=== PATIENT | male | born 1970 | race Caucasian/White ===

== ENCOUNTER 2021-10-10 03:35 | Inpatient (IN) | payer MEDICAID, SELFPAY ==
[~2021-10-10] VITALS: Ht 182.9 cm; Wt 117.9 kg
[2021-10-10 03:40] VITALS: BP_SYST 164
--- NOTE | 2021-10-10 03:50 | NUR ---
ER doctor, at bedside examining patient.
[2021-10-10] MEDS ORDERED: PIPERACILLIN/TAZO 3.38 GM in D5W 50 ML IV ONE (04:00)
[2021-10-10] MEDS ORDERED: ACETAMINOPHEN 500 MG TABLET PO ONE (04:00)
[2021-10-10] MEDS ORDERED: NS 1000 ML IV.SOLN IV ONE (04:00)
[2021-10-10] MEDS ORDERED: VANCOMYCIN HCL 1,000 MG in D5W 250 ML IV ONE (04:00)
[2021-10-10] MEDS ORDERED: cefTRIAXone 1 GM in D5W 50 ML IV ONE (04:15)
[2021-10-10] MEDS ORDERED: HYDROmorphone 1 MG/ML INJ. CARTRIDGE IM ONE (04:15)
--- NOTE | 2021-10-10 04:30 | NUR ---
PATIENT A/OX4. PATIENT IS LYING IN BED, RESTING CALMLY IN BEDSIDE, NO C/O PAIN OR S/S OF DISTRESS. PATIENT CHEST RISE AND FALL SYMMETRICAL. PATIENT RESTING COMFORTABLY, BED IN LOW AND LOCKED POSITION, 3 BED RAILS UP. Addendum: 10/10/21 at 0728 by [email or web address] PATIENT A/OX4. PATIENT IS LYING IN BED, RESTING CALMLY IN BED, NO C/O PAIN OR S/S OF DISTRESS. PATIENT CHEST RISE AND FALL SYMMETRICAL. PATIENT RESTING COMFORTABLY, BED IN LOW AND LOCKED POSITION, 3 BED RAILS UP.
[2021-10-10] MEDS ORDERED: cefTRIAXone 1 GM VIAL ONE (04:36)
[2021-10-10] MEDS ORDERED: PIPERACILLIN/TAZOBACTAM 3.375 GM/VIAL (ZOSYN) IV ONE (04:36)
[2021-10-10] MEDS ORDERED: VANCOMYCIN HCL 1000 MG/VIAL IV ONE (04:38)
[2021-10-10] MEDS ORDERED: ACETAMINOPHEN 500 MG TABLET ONE (04:44)
[2021-10-10 04:45] LABS: BASOPHILS % (AUTO) 0.2 % (0.0-2.0); HEMATOCRIT 26.4 % (36-54); HEMOGLOBIN 8.3 g/dL (14.0-18.0); LYMPHOCYTES # (AUTO) 0.8 K/uL (1.0-5.5); LYMPHOCYTES % (AUTO) 5.4 % (20.5-51.5); MEAN CORPUSCULAR HEMOGLOBIN 22 pg (27-31); MEAN CORPUSCULAR HGB CONC 31 % (32-36); MEAN CORPUSCULAR VOLUME 71 fL (79.0-98.0); MONOCYTES # (AUTO) 1.3 K/uL (0.0-1.0); MONOCYTES % (AUTO) 9.1 % (1.7-9.3); NEUTROPHILS # (AUTO) 12.2 K/uL (1.8-7.7); NEUTROPHILS % (AUTO) 85.3 % (40.0-70.0); PLATELET COUNT (AUTO) 224 K/uL (130-430); RED BLOOD CELL COUNT(AUTO) 3.73 MIL/uL (4.2-6.2); RED CELL DISTRIBUTION WIDTH 15.4 % (9.0-15.0); WHITE BLOOD COUNT (AUTO) 14.3 K/uL (4.8-10.8)
[2021-10-10 04:57] LABS: BILIRUBIN,URINE NEGATIVE (NEGATIVE); BLOOD, URINE NEGATIVE (NEGATIVE); CLARITY/URINE CLEAR (CLEAR); COLOR,URINE YELLOW (YELLOW); GLUCOSE,URINE NEGATIVE (NEGATIVE); KETONES,URINE NEGATIVE (NEGATIVE); LEUKOCYTE ESTERASE ,URINE NEGATIVE (NEGATIVE); NITRITE, URINE NEGATIVE (NEGATIVE); PH,URINE 7.5 (5.0-8.0); PROTEIN URINE 1+ (NEGATIVE)
[2021-10-10 06:25] LABS: PROTHROMBIN TIME 9.8 SECS (9.5-12.5)
--- NOTE | 2021-10-10 06:31 | NUR ---
Karly Morales called and stated she "is his , "referring to patient. Patient had previously stated, "My recently from cancer." Karly Morales requested information on patient, but she was informed that she can not be informed that patient is or is not in the hospital. due to not being on patient's emergency contact or [facility] list. Karly Morales stated that she is going to come to hospital "to see if he is in the hospital," referring to patient. Patient stated, "Karly Morales is my girlfriend and I want to add her to my emergency contact." Monotype Operator Vallery stated that she "will add Karly to [facility] information per patient request."
[2021-10-10] MEDS ORDERED: NALOXONE HCL 0.4 MG/ML AMP (NARCAN) IVP PRN ×3 (07:00→07:30)
[2021-10-10] MEDS ORDERED: MORPHINE 2 MG/ML INJ. SYRINGE IVP PRN ×2 (07:00→07:30)
--- NOTE | 2021-10-10 07:29 | NUR ---
REPORT GIVEN TO AM SHIFT NURSE, BARON RN. BARON RN VERBALIZED UNDERSTANDING OF REPORT, NO FURTHER QUESTIONS. PATIENT A/OX4. PATIENT IS LYING IN BED, RESTING CALMLY IN BED, NO C/O PAIN OR S/S OF DISTRESS. PATIENT CHEST RISE AND FALL SYMMETRICAL. PATIENT RESTING COMFORTABLY, BED IN LOW AND LOCKED POSITION, 3 BED RAILS UP. 18G IV IN LEFT ARM FLUSHED AND PAIN MEDICATION GIVEN. VANCOMYCIN INFUSING VIA 18G RIGHT ARM.
[2021-10-10] MEDS ORDERED: DOCUSATE SODIUM 100 MG CAPSULE PO PRN (07:30)
[2021-10-10] MEDS ORDERED: DEXTROSE 50% JECT 50 ML DISP.SYRIN IVP PRN (07:30)
[2021-10-10] MEDS ORDERED: POTASSIUM CHLORIDE 20 MEQ TAB.PRT.SR PO PRN (07:30)
[2021-10-10] MEDS ORDERED: MUPIROCIN 2% TOPICAL OINTMENT 22 GM NS PRN (07:30)
[2021-10-10] MEDS ORDERED: MAGNESIUM SULFATE 50 ML IV PRN (07:30)
[2021-10-10] MEDS ORDERED: ZOLPIDEM TARTRATE 5 MG TABLET PO PRN (07:30)
[2021-10-10] MEDS ORDERED: LORazepam 2 MG/ML VIAL IVP PRN (07:30)
[2021-10-10 07:31] LABS: CALCIUM 7.3 mg/dL (8.4-11.0); CREATININE 0.99 mg/dL (0.55-1.30); POTASSIUM 3.1 mmol/L (3.5-5.1); TOTAL BILIRUBIN 0.7 mg/dL (0.0-1.0)
[2021-10-10 07:32] LABS: ALBUMIN 2.6 g/dL (3.4-4.8); URIC ACID 3.8 mg/dL (2.4-7.0)
[2021-10-10 07:34] LABS: C-REACTIVE PROTEIN QUANT 37.8 mg/dL (0-0.5)
[2021-10-10] MEDS ORDERED: POTASSIUM CHLORIDE 20 MEQ TAB.PRT.SR PO ONE (07:45)
[2021-10-10] MEDS ORDERED: ACETAMINOPHEN 325 MG TABLET PO PRN (07:45)
[2021-10-10] MEDS ORDERED: ASPIRIN 81 MG TAB.CHEW PO ONE (07:45)
[2021-10-10 08:10] LABS: ERYTHROCYTE SEDIMENTATION RATE 42 MM/HR (0-15)
--- NOTE | 2021-10-10 08:56 | NUR ---
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 CHRONIC HAND PAIN, REQUESTED ICE PACK AND GIVEN FOR COMFORT. BOTH IV SL-TO RT AND LT HANDS ARE PATENT. PT UPDATED ON PLAN OF CARE, WAIITNG FOR TELE BED.
[2021-10-10] MEDS ORDERED: LISINOPRIL 10 MG TABLET (PRINIVIL) PO ONE (09:00)
[2021-10-10] MEDS ORDERED: HEPARIN SODIUM,PORCINE 5,000 UNITS/ML VIAL SUBCUT ONE (09:00)
[2021-10-10 09:43] LABS: BARBITURATE, URINE NEGATIVE (NEG <=200); BENZODIAZEPINE, URINE NEGATIVE (NEG <=150); CANNABINOID, URINE NEGATIVE (NEG <=50); COCAINE, URINE NEGATIVE (NEG <=150); METHAMPHETAMINES SCREEN,URINE POSITIVE (NEG <=500); OPIATE, URINE POSITIVE (NEG <=100); PHENCYCLIDINE SCREEN,URINE NEGATIVE (NEG <=25); UR TRICYCLIC ANTIDEPRESSANTS NEGATIVE (NEG <=300); URINE AMPHETAMINE POSITIVE (NEG <=500); URINE METHADONE NEGATIVE (NEG <=200); URINE OXYCODONE SCREEN NEGATIVE (NEG <=100); URINE PROPOXYPHENE SCREEN NEGATIVE (NEG <=300)
[2021-10-10 10:04] LABS: TOTAL IRON BIND. CAPACITY 270 ug/dL (250-450)
--- NOTE | 2021-10-10 10:09 | NUR ---
ECHOCARDIOGRA IN PROCESS
--- NOTE | 2021-10-10 10:15 | NUR ---
DR NAVARRO IN ROOM FOR EXAM
[2021-10-10] MEDS ORDERED: COLCHICINE 0.6 MG TABLET PO ONE (10:30)
[2021-10-10] MEDS: NACL 0.9% 1,000 ML IV SCH (10:30)
--- NOTE | 2021-10-10 10:35 | NUR ---
PT MOANING AND C/O SEVERE PAIN TO RT LEG/KNEE AREA, STATES "IT'S MY GOUT" MEDICATED ORDERED, WILL CONT TO MONITOR. SAFETY PRRECAUTIONS IN PLACE, ON RA @99%.
[2021-10-10] MEDS: ONDANSETRON HCL 4 MG/2 ML VIAL IVP PRN ×2 (10:36→16:05)
[2021-10-10] MEDS: MORPHINE 2 MG/ML INJ. SYRINGE IVP PRN ×2 (10:36→16:05)
--- NOTE | 2021-10-10 12:35 | NUR ---
I CALLED PHARMACY SINCE ADMITTED ORDERED MEDS RE NOT IN ER PYXIS, THEY STATE THEY WILL PROCESS AND BRING.
[2021-10-10] MEDS: VANCOMYCIN HCL 1,250 MG in NS 250 ML IV SCH ×2 (13:59→21:44)
--- NOTE | 2021-10-10 15:33 | NUR ---
PT MOANING IN PAIN UPON RE-ASSESSMENT, PAIN 10/10 TO AISHWARYA HAND AND AISHWARYA FEET "BURNING SENSATION" WILL MEDICATE ORDERED. IV FLUIDS INFUSING WELL. VSS. WAITING FOR TELE BED.
--- NOTE | 2021-10-10 17:52 | NUR ---
PT WITH EYES CLOSED, IN NAD. RESP EVEN AND UNLABORED, ON 02-2L VIA NC @98%. IV FLUIDS INFUSING WELL. EASILY AROUSABLE, MOANS IN PAIN THEN FALLS ASLEEP IMMEDIATELY. SAFETY PRECUATIONSIN PLACE. HOSPITAL BED ORDERED.
--- NOTE | 2021-10-10 18:04 | NUR ---
DR NAVARRO IN ROOM FOR EXAM. UPDATED ON STAUS, LABS AND VITALS.
--- NOTE | 2021-10-10 18:32 | NUR ---
PT TRANSFERRED TO HOSPITAL BED WITH ASSISTANCE, TOLERATED FAIRLY. DINNER TRAY GIVEN.
[2021-10-10] MEDS: ACETAMINOPHEN 325 MG TABLET PO PRN (18:34)
--- NOTE | 2021-10-10 18:43 | NUR ---
[facility] CALLED FOR AN UPDATE. PT INFORMED.
--- NOTE | 2021-10-10 19:17 | NUR ---
RECIEVED REPORT FROM EMERALD DRAPER. PT IS RESTING WITH EYES CLOSED EASILY AROUSABLE TO VERBAL STIMULI. PENDING ADMISSION TO THE TELEMETRY UNIT. WILL MONITOR NEEDED
--- NOTE | 2021-10-10 20:53 | NUR ---
ADMISSION NOTE Received patient from ER via christo, received report from Dinorah CORBIN. Patient admitted with diagnosis of cellulitis. Patient oriented to hospital routine, call light, toileting and safety-patient verbalized understanding.
[2021-10-10 20:57] VITALS: BP_SYST 134
--- NOTE | 2021-10-10 21:08 | NUR ---
Pt admitted to room 108B. Bed side report given to receiving RN. Questions/concerns answered.
[2021-10-10] MEDS: COLCHICINE 0.6 MG TABLET PO SCH (21:45)
[2021-10-10] MEDS: methylPREDNISolone SOD SUCC/PF 62.5 MG/ML VIAL IVP SCH (21:45)
[2021-10-10] MEDS: HEPARIN SODIUM,PORCINE 5,000 UNITS/ML VIAL SUBCUT SCH (21:49)
[2021-10-10] MEDS: INSULIN LISPRO SLIDING SCALE 100 UNITS/ML VIAL (humaLOG) SUBCUT PRN (22:16)
[2021-10-11] VITALS: BP_SYST 132
[2021-10-11] MEDS: ACETAMINOPHEN 325 MG TABLET PO PRN (01:18)
[2021-10-11] MEDS: NACL 0.9% 1,000 ML IV SCH ×3 (01:27→22:04)
[2021-10-11 02:15] VITALS: BP_SYST 134
[2021-10-11] MEDS: methylPREDNISolone SOD SUCC/PF 62.5 MG/ML VIAL IVP SCH ×3 (05:57→21:39)
[2021-10-11] MEDS: VANCOMYCIN HCL 1,250 MG in NS 250 ML IV SCH ×3 (05:58→21:39)
[2021-10-11] MEDS: INSULIN LISPRO SLIDING SCALE 100 UNITS/ML VIAL (humaLOG) SUBCUT PRN ×4 (06:16→20:37)
[2021-10-11 07:06] LABS: FOLATE (FOLIC ACID) 6.6 ng/mL (>3.0)
[2021-10-11 07:17] LABS: BASOPHILS % (AUTO) 0.1 % (0.0-2.0); HEMATOCRIT 26.1 % (36-54); HEMOGLOBIN 8.2 g/dL (14.0-18.0); LYMPHOCYTES # (AUTO) 0.6 K/uL (1.0-5.5); MEAN CORPUSCULAR HEMOGLOBIN 23 pg (27-31); MEAN CORPUSCULAR HGB CONC 32 % (32-36); MEAN CORPUSCULAR VOLUME 71 fL (79.0-98.0); MONOCYTES # (AUTO) 0.6 K/uL (0.0-1.0); MONOCYTES % (AUTO) 3.8 % (1.7-9.3); NEUTROPHILS # (AUTO) 14.8 K/uL (1.8-7.7); NEUTROPHILS % (AUTO) 92.1 % (40.0-70.0); PLATELET COUNT (AUTO) 221 K/uL (130-430); RED BLOOD CELL COUNT(AUTO) 3.66 MIL/uL (4.2-6.2); RED CELL DISTRIBUTION WIDTH 15.5 % (9.0-15.0)
--- NOTE | 2021-10-11 07:30 | NUR ---
PT IS AWAKE ALERT AND ORIENTED X4, NO ACUTE DISTRESS, VSS, NSR TO ST ON TELE, USUALLY INDEPENDENT AT HOME BUT DUE TO GENERALIZED EDEMA FROM GOUT, PT HAS NOT BEEN ABLE TO GET OOB. PT STATES: "IT HURTS WHEN I MOVE AROUND." ABLE TO MOVE SIDE TO SIDE TO HELP PREVENT SKIN BREAKDOWN. IV FLUIDS IN PROGRESS. ACCU CHECKS AC/HS WITH INSULIN SLIDING SCALE. WILL ASSUME CARE AND CONTINUE TO MONITOR PT.
[2021-10-11 08:00] VITALS: BP_SYST 119
[2021-10-11 08:23] LABS: CALCIUM 7.6 mg/dL (8.4-11.0); CREATININE 1.08 mg/dL (0.55-1.30)
[2021-10-11 08:28] LABS: TOTAL BILIRUBIN 0.7 mg/dL (0.0-1.0)
[2021-10-11] MEDS: COLCHICINE 0.6 MG TABLET PO SCH ×2 (09:00→15:37)
[2021-10-11] MEDS: LISINOPRIL 10 MG TABLET (PRINIVIL) PO SCH (09:01)
[2021-10-11] MEDS: HEPARIN SODIUM,PORCINE 5,000 UNITS/ML VIAL SUBCUT SCH ×2 (09:05→20:42)
[2021-10-11] MEDS ORDERED: FUROSEMIDE 40 MG/4 ML VIAL IVP ONE (09:30)
[2021-10-11 09:35] LABS: ERYTHROCYTE SEDIMENTATION RATE 54 MM/HR (0-15)
--- NOTE | 2021-10-11 10:54 | NUR ---
12 LEAD EKG DONE. Addendum: 10/11/21 at 1827 by [facility] [employer] special education teacher VOID.
[2021-10-11 11:04] LABS: THYROID STIMULATING HORMONE 0.37 uIu/mL (0.34-4.82)
[2021-10-11 11:32] VITALS: BP_SYST 150
[2021-10-11] MEDS: MORPHINE 2 MG/ML INJ. SYRINGE IVP PRN ×2 (12:15→17:57)
[2021-10-11 15:31] VITALS: BP_SYST 150
--- NOTE | 2021-10-11 15:52 | NUR ---
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 Transferred from room 108 A to room 103A.
--- NOTE | 2021-10-11 18:00 | NUR ---
PAGED DR. LAWSON TO ADDRESS PT'S REQUESTS AND COMPLAINS. PT STATES THAT COLCHICINE FOR HIS GOUT DOES NOT HELP WITH HIS GOUT PAIN. PATIENT REQUESTING FOR INDOMETHACIN FOR HIS GOUT AND WATER RETENTION. AWAITING FOR CALL BACK. ADMINISTERED MORPHINE 2 MG IV FOR PAIN, WITH RELIEVED PAIN.
[2021-10-11 21:15] VITALS: BP_SYST 135
[2021-10-11] MEDS: HYDROcodone/ACETAMIN 5-325 MG TAB (NORCO/ VICODIN) PO PRN (23:14)
[2021-10-12] MEDS: methylPREDNISolone SOD SUCC/PF 62.5 MG/ML VIAL IVP SCH (05:05)
[2021-10-12] MEDS: VANCOMYCIN HCL 1,250 MG in NS 250 ML IV SCH ×2 (05:06→13:01)
[2021-10-12 05:22] VITALS: BP_SYST 124
[2021-10-12] MEDS: INSULIN LISPRO SLIDING SCALE 100 UNITS/ML VIAL (humaLOG) SUBCUT PRN ×2 (06:08→12:59)
[2021-10-12 06:34] LABS: CALCIUM 7.7 mg/dL (8.4-11.0); CREATININE 0.93 mg/dL (0.55-1.30)
[2021-10-12 07:41] LABS: HEMATOCRIT 26.3 % (36-54); HEMOGLOBIN 8.3 g/dL (14.0-18.0); LYMPHOCYTES # (AUTO) 0.7 K/uL (1.0-5.5); LYMPHOCYTES % (AUTO) 3.6 % (20.5-51.5); MEAN CORPUSCULAR HEMOGLOBIN 22 pg (27-31); MEAN CORPUSCULAR HGB CONC 32 % (32-36); MEAN CORPUSCULAR VOLUME 70 fL (79.0-98.0); MONOCYTES # (AUTO) 0.6 K/uL (0.0-1.0); MONOCYTES % (AUTO) 3.1 % (1.7-9.3); NEUTROPHILS # (AUTO) 18.6 K/uL (1.8-7.7); NEUTROPHILS % (AUTO) 93.3 % (40.0-70.0); PLATELET COUNT (AUTO) 286 K/uL (130-430); RED BLOOD CELL COUNT(AUTO) 3.74 MIL/uL (4.2-6.2); RED CELL DISTRIBUTION WIDTH 15.2 % (9.0-15.0); WHITE BLOOD COUNT (AUTO) 19.9 K/uL (4.8-10.8)
--- NOTE | 2021-10-12 07:45 | NUR ---
PT AWAKE, ALERT AND ORIENTED X4, COMPLAIN OF BLE AND LEFT SHOULDER PAIN, PAIN MANAGED WITH NORCO. NO ACUTE DISTRESS, NSR ON TELE, ON IV ANTIBIOTICS. ABLE TO REPOSITION AND TURN BUT STILL COMPLAINS OF PAIN WITH ACTIVITY DUE TO GOUT. BLE EDEMA, RIGHT KNEE SWOLLEN, AND BILATERAL UPPER EXTREMITIES SWELLING MORE ON LEFT ARM THAN RIGHT. ASSUMING CARE. WILL CONTINUE TO MONITOR.
--- NOTE | 2021-10-12 07:50 | NUR ---
DR. LAWSON HERE TO SEE PATIENT AND PLAN FOR DISCHARGE. MADE MD AWARE OF HIGH BLOOD PRESSURE >180 SYSTOLIC. COMPLAIN OF BLE PAIN. SCHEDULED MEDS WILL BE GIVEN. ADDRESSED TO DR. LAWSON REGARDING PT'S CONCERN OF NOT BEING ABLE TO WALK DUE TO THE PAIN AND SWELLING ON THE LEGS. PER MD, PRESCRIPTION INDOMETHECIN SHOULD HELP AND SWELLING SHOULD BE ABLE TO GO DOWN. CONSULTED METEOROLOGICAL AIDE. PT IS CONCERN OF HOW HE WILL BE ABLE TO GET UP TO HIS APPARTMENT WITH 40 STA[address] STEPS. PER METEOROLOGICAL AIDE HECTOR, SHE WILL FIND A TRANSPORTATION CAN ASSIST AND WILL BRING PT UP TO HIS APARTMENT.
[2021-10-12] MEDS ORDERED: PRED10TA PO (07:54)
[2021-10-12] MEDS ORDERED: INDO50CA90 PO (07:57)
[2021-10-12] MEDS ORDERED: CEPH-548 PO (07:57)
[2021-10-12] MEDS ORDERED: HYDR-3917 PO (08:00)
[2021-10-12 08:06] VITALS: BP_SYST 169
[2021-10-12] MEDS ORDERED: cloNIDine HCL 0.2 MG TABLET PO ONE ×3 (08:30→14:15)
[2021-10-12] MEDS ORDERED: INDOMETHACIN 25 MG CAPSULE(INDOCIN) PO SCH (09:00)
[2021-10-12] MEDS: LISINOPRIL 10 MG TABLET (PRINIVIL) PO SCH (09:37)
[2021-10-12] MEDS: HEPARIN SODIUM,PORCINE 5,000 UNITS/ML VIAL SUBCUT SCH (09:41)
--- NOTE | 2021-10-12 10:13 | NUR ---
CONSULTATION PAGED/CALLED Reason for Consultation: [] arthritis R knee Person Who was Notified: [] Dr Brooks Consulting Physician: [] DR RAISA BROOKS Project Construction Manager Specialty: [] ORTHO Ordering Physician: [] DR NAVARRO
--- NOTE | 2021-10-12 10:18 | NUR ---
LEFT A VOICE MESSAGE TO THE ATTENDING MD DR LAWSON, RE: ORTHO CONSULT DR JONES DOES NOT ACCEPT MEDICAL, INSTEAD DR TRIVEDI WILL SEE PT PER ORDER OF DR NAVARRO
--- NOTE | 2021-10-12 10:21 | NUR ---
Transportation to home by [employer] [phone] at 2:30 PM today. Reservation # [id number]. It will be bariatric transport.
--- NOTE | 2021-10-12 11:33 | NUR ---
TELEPHONE DIRECTORY DISTRIBUTOR DRIVER DR NAVARRO WAS CALLED, RE: HIGH BP OF 191/104.
[2021-10-12 11:34] VITALS: BP_SYST 191
[2021-10-12] MEDS: HYDROcodone/ACETAMIN 5-325 MG TAB (NORCO/ VICODIN) PO PRN (11:43)
[2021-10-12] MEDS ORDERED: methylPREDNISolone ACETATE 40 MG/ML IM ONE (12:00)
[2021-10-12] MEDS ORDERED: BUPIVACAINE /PF 0.25% 30 ML VIAL INJ ONE (12:00)
--- NOTE | 2021-10-12 12:03 | NUR ---
DR. JONES HERE TO SEE THE PATIENT. ORDERS RECEIVED.
[2021-10-12] MEDS ORDERED: METHYLPREDNISOLONE SOD SUCC 40 MG/ML VIAL IVP SCH (14:00)
--- NOTE | 2021-10-12 14:00 | NUR ---
ASSISTED DR. JONES WITH RIGHT KNEE FLUID ASPIRATION.
--- NOTE | 2021-10-12 14:44 | NUR ---
Order sent to [facility] for FWW and Bedside [phone]
[2021-10-12 15:07] LABS: CHLAMYDIA TRACHOMATIS NAA Negative (Negative); NEISSERIA GONORRHOEAE NAA Negative (Negative)
[2021-10-12 15:20] VITALS: BP_SYST 155
--- NOTE | 2021-10-12 15:30 | NUR ---
BLOOD PRESSURE IS CONTROLLED WITH CLONODINE 0.[address] NAVARRO AND PRESCRIPTION GIVEN. PTHYSICAL THERAPIST EVALUATED AND TREATED PT. GOT UP TO BATHROOM WITH PT. NO ACUTE DISTRESS, VS STABLE. PT STATES THAT HE FEELS BETTER AFTER FLUID WAS TAKEN OUT OF HIS KNEE. STILL HURTS BUT A BIT BETTER. PT MADE AWARE THAT HE WILL BE TRANSFERRED VIA GURNEY AND WILL BE BROUGHT TO 2ND FLOOR OF HIS APARTMENT BY [facility]. DISCHARGE PAPER/INSTRUCTIONS, PRESCRIPTION MEDS GIVEN, AND BELONGINGS RETURNED TO PT. ADDRESSED PT QUESTIONS AND CONCERNS AND VERBALIZES UNDERSTANDING OF D/C INSTRUCTIONS.
--- NOTE | 2021-10-12 16:11 | NUR ---
PT D/C FROM THE UNIT. TELE BOX AND IV LINE DISCONTINUED. [facility] IS AWARE THAT PT WILL BE BROUGHT ALL THE WAY UP TO THE 2ND FLOOR AND INTO THE APARTMENT DISCUSSED. PT IS NOT ABLE TO CLIMB UP THE STAIRS.
--- NOTE | 2021-10-12 17:06 | NUR ---
Dietitian Recommendations * [facility] Please refer to Nutrition Assessment for details. Addendum: 10/12/21 at [address] Amended: Links added.
--- NOTE | 2021-10-12 18:00 | NUR ---
PT SPOUSE [facility] CALLED AND WAS VERY UPSET. PER SPOUSE THE PATIENT WAS LEFT OUTSIDE OF THE HALLWAY BY TRANSPORTERS. PT WAS NOT ABLE TO WALK FROM THE HALLWAY TO GO INSIDE HIS APARTMENT.
[2021-10-12] MEDS ORDERED: cloNIDine HCL 0.2 MG TABLET PO SCH (21:00)
--- NOTE | 2021-10-13 15:20 | NUR ---
Discharge Planning: KARP received a call from pts DME had not been delivered. KARP spoke to Justin at [facility] [phone], [facility] will be delivering in 24 to 48hrs. DCP made aware.
[2021-10-15 20:41] LABS: HEMOGLOBIN A1C 6.4 % (4.8-5.6)
== END 2021-10-12 17:29 | disposition home or self-care (01) | DRG 720 ==
LOC: SED 03:35 → SMU 06:31 → STU 08:36
PROVIDERS: ADMIT General Practice; ATTEND General Practice
PROC: 0S9C3ZZ Drainage of Right Knee Joint, Percutaneous Approach (ICD-10-PCS; principal; 2021-10-12)
DX: A41.9 Sepsis, unspecified organism (principal); I24.9 Acute ischemic heart disease, unspecified; E44.1 Mild protein-calorie malnutrition; D63.8 Anemia in other chronic diseases classified elsewhere; L03.115 Cellulitis of right lower limb; L03.116 Cellulitis of left lower limb; E11.9 Type 2 diabetes mellitus without complications; M25.461 Effusion, right knee; E66.01 Morbid (severe) obesity due to excess calories; Z20.822 Contact with and (suspected) exposure to COVID-19; F15.10 Other stimulant abuse, uncomplicated; M10.9 Gout, unspecified; Z68.35 Body mass index [BMI] 35.0-35.9, adult; Z71.51 Drug abuse counseling and surveillance of drug abuser
CPT/HCPCS: 36415; 71045; 80048; 80053; 80061; 80202; 80307; 81003; 82042; 82607; 82728; 82746; 82962; 83036; 83540; 83550; 83605; 83690; 83735; 83880; 84157; 84443; 84484; 84550; 85025; 85610-TC; 85651-TC; 85730-TC; 86140; 87040; 87070-TC; 87086; 87491; 87591; 89051-TC; 93005; 93306; 96372; 96374; 96375; 97163-GP; 99285; G0378; J0696; J1030; J1170; J1644; J1940; J2060; J2270; J2405; J2543; J2930; J3370; J3490; J7050

== ENCOUNTER 2024-03-02 20:35 | Inpatient (IN) | payer MEDICAID ==
[~2024-03-02] VITALS: Ht 182.9 cm; Wt 124.7 kg
[~2024-03-02 20:35] MED LIST: CEPH-548 PO; HYDR-3917 PO; INDO50CA90 PO; PRED10TA PO
[2024-03-02 20:41] VITALS: BP_SYST 123; PULSE 88; RESP 20; TEMP 97.5; O2SAT 97
[2024-03-02 21:37] LABS: BASOPHILS % (AUTO) 0.4 % (0.0-2.0); EOSINOPHILS # (AUTO) 0.2 K/uL (0.0-0.4); EOSINOPHILS % (AUTO) 3.5 % (0.0-4.0); HEMATOCRIT 37.2 % (36-54); HEMOGLOBIN 13.2 g/dL (14.0-18.0); LYMPHOCYTES # (AUTO) 0.8 K/uL (1.0-5.5); LYMPHOCYTES % (AUTO) 17.5 % (20.5-51.5); MEAN CORPUSCULAR HEMOGLOBIN 33 pg (27-31); MEAN CORPUSCULAR HGB CONC 36 % (32-36); MEAN CORPUSCULAR VOLUME 92 fL (79.0-98.0); MONOCYTES # (AUTO) 0.3 K/uL (0.0-1.0); MONOCYTES % (AUTO) 7.7 % (1.7-9.3); NEUTROPHILS # (AUTO) 3.2 K/uL (1.8-7.7); NEUTROPHILS % (AUTO) 70.9 % (40.0-70.0); PLATELET COUNT (AUTO) 183 K/uL (130-430); RED BLOOD CELL COUNT(AUTO) 4.03 MIL/uL (4.2-6.2); RED CELL DISTRIBUTION WIDTH 13.4 % (9.0-15.0); WHITE BLOOD COUNT (AUTO) 4.5 K/uL (4.8-10.8)
[2024-03-02] MEDS: MORPHINE 4 MG INJ. 4 MG/ML VIAL IVP ONE (21:38)
[2024-03-02] MEDS: ONDANSETRON HCL 4 MG/2 ML VIAL IVP ONE (21:39)
[2024-03-02 21:54] LABS: ALBUMIN 3.8 g/dL (3.4-4.8); BILIRUBIN,DIRECT 0.1 mg/dL (0.0-0.3); CALCIUM 8.7 mg/dL (8.4-11.0); CREATININE 1.23 mg/dL (0.55-1.30); POTASSIUM 3.8 mmol/L (3.5-5.1); TOTAL BILIRUBIN 0.6 mg/dL (0.0-1.0); TOTAL PROTEIN, SERUM 7.6 g/dL (6.4-8.3)
[2024-03-03] VITALS (7 sets, daily range): BP systolic 132–167; PULSE 72–86; RESP 16–18; TEMP 96.9–98.8; O2SAT 92–98
[2024-03-03] MEDS ORDERED: D5W 1,000 ML IV PRN (00:15)
[2024-03-03] MEDS ORDERED: HYDROcodone/ACETAMIN 5-325 MG TAB (NORCO/ VICODIN) PO PRN (00:15)
[2024-03-03] MEDS ORDERED: GLUCOSE (DEXTROSE) ORAL GEL -Adults PO PRN (00:15)
[2024-03-03] MEDS ORDERED: ACETAMINOPHEN 325 MG TABLET PO PRN (00:15)
[2024-03-03] MEDS ORDERED: DEXTROSE 50% JECT 50 ML DISP.SYRIN IVP PRN (00:15)
[2024-03-03] MEDS ORDERED: INSULIN REGULAR, HUMAN 100 UNITS/ML, 3 ML VIAL (humuLIN R) SUBCUT PRN (00:15)
[2024-03-03] MEDS ORDERED: DOCU250C75 PO (00:18)
[2024-03-03] MEDS ORDERED: LOPE2CAP PO (00:18)
[2024-03-03] MEDS ORDERED: [UNRECOGNIZED DRUG - CODE] PO (00:18)
[2024-03-03] MEDS: D5/0.45 NS 1,000 ML IV SCH (00:28)
[2024-03-03] MEDS ORDERED: HYDROmorphone 1 MG/ML INJ. CARTRIDGE ONE (01:46)
[2024-03-03] MEDS: HYDROmorphone 2 MG/ML VIAL IVP PRN (01:47)
[2024-03-03] MEDS ORDERED: ALLO300T2 PO (02:23)
[2024-03-03] MEDS ORDERED: MV-M1CAP15 PO (02:23)
[2024-03-03] MEDS ORDERED: ASPI-1393 PO (02:30)
[2024-03-03] MEDS ORDERED: NOR10 PO (02:31)
[2024-03-03] MEDS ORDERED: LOSA-415 PO (02:35)
[2024-03-03] MEDS ORDERED: VIT C (02:35)
[2024-03-03] MEDS ORDERED: FERR-69 PO (02:41)
[2024-03-03] MEDS: hydrALAZINE HCL 20 MG/ML VIAL IVP PRN (03:03)
[2024-03-03] MEDS: PANTOPRAZOLE SODIUM 40 MG/VIAL (PROTONIX) IVP SCH (08:47)
[2024-03-03] MEDS: ONDANSETRON HCL 4 MG/2 ML VIAL IVP PRN (11:41)
[2024-03-03] MEDS: HEPARIN SODIUM,PORCINE 5,000 UNITS/ML VIAL SUBCUT ONE (16:11)
[2024-03-03] MEDS: HEPARIN SODIUM,PORCINE 5,000 UNITS/ML VIAL SUBCUT SCH (20:59)
[2024-03-04 00:30] VITALS: BP_SYST 148; PULSE 68; RESP 18; TEMP 96.3; O2SAT 96
[2024-03-04] MEDS: DIPHENHYDRAMINE INJ 50 MG/ML VIAL IVP ONE (03:56)
[2024-03-04 06:39] LABS: BASOPHILS % (AUTO) 0.2 % (0.0-2.0); EOSINOPHILS # (AUTO) 0.1 K/uL (0.0-0.4); EOSINOPHILS % (AUTO) 2.4 % (0.0-4.0); HEMATOCRIT 36.5 % (36-54); HEMOGLOBIN 12.6 g/dL (14.0-18.0); LYMPHOCYTES # (AUTO) 0.8 K/uL (1.0-5.5); LYMPHOCYTES % (AUTO) 13.9 % (20.5-51.5); MEAN CORPUSCULAR HEMOGLOBIN 32 pg (27-31); MEAN CORPUSCULAR HGB CONC 34 % (32-36); MEAN CORPUSCULAR VOLUME 95 fL (79.0-98.0); MONOCYTES # (AUTO) 0.5 K/uL (0.0-1.0); MONOCYTES % (AUTO) 8.7 % (1.7-9.3); NEUTROPHILS % (AUTO) 74.8 % (40.0-70.0); PLATELET COUNT (AUTO) 174 K/uL (130-430); RED BLOOD CELL COUNT(AUTO) 3.87 MIL/uL (4.2-6.2); RED CELL DISTRIBUTION WIDTH 13.2 % (9.0-15.0); WHITE BLOOD COUNT (AUTO) 5.4 K/uL (4.8-10.8)
[2024-03-04 07:55] LABS: CALCIUM 8.7 mg/dL (8.4-11.0); CREATININE 1.09 mg/dL (0.55-1.30); POTASSIUM 3.5 mmol/L (3.5-5.1)
[2024-03-04 08:01] VITALS: O2SAT 99
[2024-03-04 08:08] VITALS: BP_SYST 160; PULSE 71; RESP 17; TEMP 97.8; O2SAT 99
[2024-03-04 11:02] VITALS: BP_SYST 153; PULSE 88; RESP 16; TEMP 98.1; O2SAT 95
[2024-03-04 15:25] VITALS: BP_SYST 125; PULSE 77; RESP 19; TEMP 98.6; O2SAT 99
== END 2024-03-04 17:30 | disposition home or self-care (01) | DRG 247 ==
LOC: SED 20:35 → SMU 03-03 00:01
PROVIDERS: ADMIT Student in an Organized Health Care Education/Training Program; ATTEND Student in an Organized Health Care Education/Training Program
DX: K56.609 Unspecified intestinal obstruction, unspecified as to partial versus complete obstruction (principal); E11.9 Type 2 diabetes mellitus without complications; I10 Essential (primary) hypertension; Z79.899 Other long term (current) drug therapy
CPT/HCPCS: 36415; 71045; 74250; 80048; 80076; 82948; 83690; 85025; 96374; 96375; 99285; J0360; J1170; J1200; J1644; J1815; J2270; J2405; J2470